=== PATIENT | female | born 1955 | race Caucasian/White ===

== ENCOUNTER → 2016-06-21 | Outpatient (CLI) | payer OTHER ==
--- NOTE | 2016-06-22 11:03 | MM ---
Reason for exam: screening (asymptomatic). Last mammogram was performed 1 year ago. History: Patient is postmenopausal. Benign MG stereo VAD BX RT of the right breast, August 12, 2014. Physical Findings: A clinical breast exam by your physician is recommended on an annual basis and results should be correlated with mammographic findings. MG Screening Mammo w CAD Bilateral CC and MLO view(s) were taken. Prior study comparison: June 19, 2015, bilateral MG diagnostic mammo w CAD [facility]. July 26, 2014, bilateral MG work up mamm w CAD BILAT. There are scattered fibroglandular densities. Finding: There are typically benign punctate calcifications. No significant changes in finding since June 19, 2015 and July 26, 2014. ASSESSMENT: Benign, BI-RAD 2 RECOMMENDATION: Routine screening mammogram of both breasts in 1 year.
== END | disposition home or self-care (01) ==
LOC: RADMAMWWP 16:52
PROVIDERS: ATTEND Obstetrics & Gynecology
DX: Z12.31 Encounter for screening mammogram for malignant neoplasm of breast (principal)

== ENCOUNTER → 2017-01-26 | Day surgery (SDC) | payer OTHER ==
[~2017-01-26] MED LIST: BALANCED SALT IRRIG SOLN COMB2 15 ML IRRIG.SOLN IRRIGATION ONE; EPINEPHrine (PF) 0.3 ML in BALANCED SALT IRRIG SOLN COMB2 500 ML IRRIGATION ONE; FLUORESCEIN STRIPS 1 MG STRIP MISCELLANE ONE; HYALURONATE SODIUM INTRAOCULAR 1 EACH SYRINGE (12MG/ML) INTRAOCULA ONE; LACTATED RINGERS 1,000 ML IV SCH; LIDOCAINE 1% (PF) 10MG/ML VIAL INTRAARTIC ONE; LIDOCAINE 1% 20 ML VIAL (10MG/ML) FOR IV START INTRADERMA PRN; MIDAZOLAM 2 MG/2 ML VIAL ONE; MOXIFLOXACIN HCL 0.5% DROPS 3 ML BTL OP ONE; PHENYLEPHRINE 2.5% OPHTH DRP 2ML OP NR; TETRACAINE 0.5% OPHTH (PF) DROPS 4 ML BTL OP ONE; TIMOLOL 0.5% OPHTH SOLN (PF) 0.2 ML DROPERETTE OP ONE; fentaNYL (PF) 50 MCG/ML 2 ML AMP ONE
[2017-01-26 13:52] VITALS: RESP 18; TEMP 98.3
[2017-01-26] MEDS: CYCLOPENTOLATE 1% OPHTH SOLN 2 ML BTL OP ONE ×3 (13:53→14:13)
--- NOTE | 2017-01-26 15:37 | P.OP ---
Date of Procedure: 01/26/17 Preoperative Diagnosis: other disorders OD following cataract surgery & visual discomfort. Postoperative Diagnosis: same Procedure(s) Performed: IOL exchange,OD Implants: PCB00 26.00 Anesthesia: MAC Surgeon: Sánchez Vieyra Estimated Blood Loss (ml): 0 Pathology: none sent Condition: stable Disposition: same day Indications for Procedure: POOR VISION/SIGHT Operative Findings: No complications
[2017-01-26 16:09] VITALS: BP 110/60; PULSE 84
--- NOTE | 2017-01-27 06:14 | OP ---
OPERATIVE REPORT DATE OF SURGERY: January 26, 2017. PROCEDURE: Intra-ocular lens exchange of the right eye. 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 SURGEON: Dr. Sánchez Vieyra. ANESTHESIA: Topical. ESTIMATED BLOOD LOSS: None. SPECIMEN: Taken none. NARRATIVE: After obtaining the appropriate consent, the patient was brought to the operating room there she was placed on cardiac monitoring prepped and draped in the usual sterile manner. She was approached from her right temporal side. The purpose of this particular procedure is related to an apparent calculation error following refractive surgery and a hyper Lasix treated eye. The patient was identified as remaining approximately 3 diopters myopic following calculations for this type of procedure. Following the original surgery it was quite apparent that the desired refractive result was not available and multiple refractions as well as refraction through a contact lens, arrived at a new calculation for an intra-ocular lens which may be more appropriate for this patient's eyes. Therefore, she is returned today to have that differently calculated for lens replace the implanted lens from the original surgery. At the 11 o'clock position, a 1.1 mm stab blade was used to create a paracentesis port as nearly close to the original as could be identified. Through this opening 1% Xylocaine MPF 50 50 mix of balanced salt solution was injected into the anterior chamber. This was followed by stabilization of the anterior chamber with Amvisc. At the 9 o'clock position. A 2.5 mm keratome was used to carefully open the temporal incision of which had not totally healed as this was only approximately 1 month following the original surgery. Once this was identified and opened using balanced salt solution as well as viscoelastic, the intra-ocular lens was from its capsular bag without much difficulty. A Sinskey hook was then used to rotate the lens out of its confinement and into the anterior chamber. The previous lens was a 28.5 acrylic PCB 0 0 of fairly substantial thickness using the Scandlines lens removal system. Very careful pressure was applied to the central portion of the optic and after several minutes the intra-ocular lens was cut in two. As the temporal incision had been enlarged slightly on entering the eye each half of this intra-ocular lens was relatively easily brought through the temporal incision without further manipulation of the eye itself. At this point, a new PCP 00 26 diopter posterior chamber intraocular lens was then introduced and placed in the capsular bag with no difficulty. The remaining viscoelastic was removed from in and around the intra-ocular lens with the irrigation aspiration as well as removal from the anterior chamber. The eye was brought to normal intraocular pressure through the paracentesis port and to ensure a watertight integrity ReSure was used to maintain closure, particularly of the temporal incision. At this date confirmation of this watertight integrity was confirmed using a fluorescein strip. She then received 2 drops of 0.5% timolol followed by 2 drops of moxifloxacin, was then lightly patched and shielded in the usual manner. There were no complications from the procedure. She tolerated the procedure well and returned to outpatient recovery in good condition. DAIJA / ANCELMON: [id number] /
== END | disposition home or self-care (01) ==
LOC: OR 11:43
PROVIDERS: ATTEND Ophthalmology
DX: H59.091 Other disorders of the right eye following cataract surgery (principal); H53.141 Visual discomfort, right eye; H52.13 Myopia, bilateral; H52.4 Presbyopia; H25.012 Cortical age-related cataract, left eye; H25.12 Age-related nuclear cataract, left eye; Z96.1 Presence of intraocular lens; M19.90 Unspecified osteoarthritis, unspecified site; Z87.891 Personal history of nicotine dependence; E78.5 Hyperlipidemia, unspecified; F41.9 Anxiety disorder, unspecified; K21.9 Gastro-esophageal reflux disease without esophagitis; Z79.1 Long term (current) use of non-steroidal anti-inflammatories (NSAID); Z79.52 Long term (current) use of systemic steroids; Z79.899 Other long term (current) drug therapy
CPT/HCPCS: 66986; C1780; J2250; J0171; J3010; J2001

== ENCOUNTER → 2017-08-24 | Outpatient (CLI) | payer OTHER ==
--- NOTE | 2017-08-25 12:25 | MM ---
Reason for exam: screening (asymptomatic). Last mammogram was performed 1 year and 2 months ago. History: Patient is postmenopausal. Benign MG stereo VAD BX RT of the right breast, August 12, 2014. Physical Findings: A clinical breast exam by your physician is recommended on an annual basis and results should be correlated with mammographic findings. MG Screening Mammo w CAD Bilateral CC and MLO view(s) were taken. Prior study comparison: June 21, 2016, bilateral MG screening mammo w CAD. June 19, 2015, bilateral MG diagnostic mammo w CAD [facility]. There are scattered fibroglandular densities. Previous mammotome biopsy in the right breast. Scattered benign round calcifications bilaterally. No significant changes when compared with prior studies. ASSESSMENT: Negative, BI-RAD 1 RECOMMENDATION: Routine screening mammogram of both breasts in 1 year.
== END | disposition home or self-care (01) ==
LOC: RADMAMWWP 14:33
PROVIDERS: ATTEND Obstetrics & Gynecology
DX: Z12.31 Encounter for screening mammogram for malignant neoplasm of breast (principal)
CPT/HCPCS: 77067

== ENCOUNTER → 2018-10-06 | Outpatient (CLI) | payer OTHER ==
--- NOTE | 2018-10-09 10:14 | MM ---
Reason for exam: screening (asymptomatic). Last mammogram was performed 1 year and 1 month ago. History: Patient is postmenopausal. Benign MG stereo VAD BX RT of the right breast, August 12, 2014. Physical Findings: A clinical breast exam by your physician is recommended on an annual basis and results should be correlated with mammographic findings. MG 3D Screening Mammo W/Cad Bilateral CC and MLO view(s) were taken. Prior study comparison: August 24, 2017, bilateral MG screening mammo w CAD. June 21, 2016, bilateral MG screening mammo w CAD. There are scattered fibroglandular densities. Stable benign calcifications. There is no discrete abnormality. No significant changes when compared with prior studies. ASSESSMENT: Benign, BI-RAD 2 RECOMMENDATION: Routine screening mammogram of both breasts in 1 year.
== END | disposition home or self-care (01) ==
LOC: RADMAMWWP 15:36
PROVIDERS: ATTEND Obstetrics & Gynecology
DX: Z12.31 Encounter for screening mammogram for malignant neoplasm of breast (principal)
CPT/HCPCS: 77063; 77067

== ENCOUNTER → 2019-11-30 | Outpatient (CLI) | payer OTHER ==
--- NOTE | 2019-12-03 09:51 | MM ---
Reason for exam: screening (asymptomatic). Last mammogram was performed 1 year and 2 months ago. History: Patient is postmenopausal. Benign MG stereo VAD BX RT of the right breast, August 12, 2014. Physical Findings: A clinical breast exam by your physician is recommended on an annual basis and results should be correlated with mammographic findings. MG Screening Mammo w CAD Bilateral CC and MLO view(s) were taken. Prior study comparison: October 06, 2018, bilateral MG 3d screening mammo w/cad. August 24, 2017, bilateral MG screening mammo w CAD. There are scattered fibroglandular densities. Stable benign calcifications. No significant changes when compared with prior studies. ASSESSMENT: Benign, BI-RAD 2 RECOMMENDATION: Routine screening mammogram of both breasts in 1 year.
== END | disposition home or self-care (01) ==
LOC: RADMAMWWP 15:05
PROVIDERS: ATTEND Obstetrics & Gynecology
DX: Z12.31 Encounter for screening mammogram for malignant neoplasm of breast (principal)
CPT/HCPCS: 77067

== ENCOUNTER → 2020-12-03 | Outpatient (CLI) | payer OTHER ==
--- NOTE | 2020-12-05 11:17 | MM ---
Reason for exam: screening (asymptomatic). Last mammogram was performed 1 year ago. History: Patient is postmenopausal. Benign MG stereo VAD BX RT of the right breast, August 12, 2014. Physical Findings: A clinical breast exam by your physician is recommended on an annual basis and results should be correlated with mammographic findings. MG 3D Screening Mammo W/Cad Bilateral CC and MLO view(s) were taken. Prior study comparison: November 30, 2019, bilateral MG screening mammo w CAD. October 06, 2018, bilateral MG 3d screening mammo w/cad. August 24, 2017, bilateral MG screening mammo w CAD. There are scattered fibroglandular densities. Previous mammotome biopsy in the right breast. Scattered benign round, punctate and oil cyst calcifications. No significant changes when compared with prior studies. ASSESSMENT: Benign, BI-RAD 2 RECOMMENDATION: Routine screening mammogram of both breasts in 1 year.
== END | disposition home or self-care (01) ==
LOC: RADMAMWWP 16:18
PROVIDERS: ATTEND Obstetrics & Gynecology
DX: Z12.31 Encounter for screening mammogram for malignant neoplasm of breast (principal); Z78.0 Asymptomatic menopausal state
CPT/HCPCS: 77063; 77067

== ENCOUNTER → 2024-02-23 | Outpatient (CLI) | payer MEDICARE ==
--- NOTE | 2024-02-27 17:18 | MM ---
Reason for Exam: Screening (asymptomatic). Last mammogram was performed 3 year(s) and 2 month(s) ago. Patient History: Menarche at age 12. First Full-Term at age 21. Postmenopausal. 08/12/2014, Benign Core Biopsy on the right side. Risk Values: Tamara 5 year model risk: 1.8%. NCI Lifetime model risk: 5.9%. Prior Study Comparison: 10/06/2018 Bilateral Screening Mammogram, [facility]. 11/30/2019 Bilateral Screening Mammogram, [facility]. 12/03/2020 Bilateral Screening Mammogram, [facility]. Tissue Density: There are scattered areas of fibroglandular density. Findings: Analyzed By CAD. Microclip right breast from prior biopsy. Scattered benign round and punctate calcifications redemonstrated. There is no suspicious group of microcalcifications or new suspicious mass in either breast. Overall Assessment: Benign, BI-RAD 2 Management: Screening Mammogram of both breasts in 1 year. . Patient should continue monthly self-breast exams. A clinical breast exam by your physician is recommended on an annual basis. This exam should not preclude additional follow-up of suspicious palpable abnormalities. Note on Tamara scores and lifetime risk: 1. A Tamara score greater than 3% is considered moderate risk. If this is the case, consider specialist referral to assess eligibility for a risk reducing agent. 2. If overall lifetime risk for the development of breast cancer is 20% or higher, the patient may qualify for future screening with alternating mammogram and breast MRI. [facility], , 02/27/2024 5:15 PM. Electronically signed and approved by: Rocio Baires M.D. Radiologist
== END | disposition home or self-care (01) ==
LOC: RADMAMWWP 09:53
PROVIDERS: ATTEND Obstetrics & Gynecology
DX: Z12.31 Encounter for screening mammogram for malignant neoplasm of breast (principal); Z78.0 Asymptomatic menopausal state; R92.323 Mammographic fibroglandular density, bilateral breasts; Z98.82 Breast implant status
CPT/HCPCS: 77063; 77067